=== PATIENT | male | born 1980 | race Caucasian/White ===

== ENCOUNTER 2018-10-07 10:01 | Emergency (ER) | payer MEDICAID ==
[~2018-10-07] VITALS: Ht 188 cm; Wt 109.3 kg
[2018-10-07 10:04] VITALS: BP 146/78
--- NOTE | 2018-10-07 10:13 | NUR ---
BIB . AAO X4 C/O INSOMNIA AND NON RADIATING CHEST TIGHTNESS X 3 DAYS. PT DENIES CHEST PAIN. PT STATES HE HAS HAD A HISTORY OF ANXIETY. PT STATES THAT HE HAS A LOT IN HIS MIND CAUSING HIM TO WORRY AND NOT BEING ABLE TO SLEEP. PT IS NON DIAPHORETIC, PT SPEAKING IN COMPLETE SENTENCES. NO FACIAL ASSYMETRY, DENIES SOB. EQUAL JORGE STRENGTH TO UPPER AND LOWER EXTREMITIES. PT AMBULATED WITH STEADY GAIT. PT PLACED ON FULL [employer]. HOB UP. BED SIDE RAILS UP X1. ON LOW BED POSITION, LOCKED. ER TO EVALUATE PT.
--- NOTE | 2018-10-07 10:40 | NUR ---
RESIDENT DOCTOR AT BEDSIDE FOR PT EVALUATION
[2018-10-07] MEDS ORDERED: LIDOCAINE VISCOUS 2% 20 ML UDC PO ONE (10:50)
[2018-10-07] MEDS ORDERED: DICYCLOMINE HCL LIQUID 10 MG/5 ML UDC PO ONE (10:50)
[2018-10-07] MEDS ORDERED: ALUMINUM HYD/MAG/SIMETHICONE 30 ML UDC PO ONE (10:50)
[2018-10-07] MEDS ORDERED: PANTOPRAZOLE 40 MG TABEC PO ONE (10:55)
--- NOTE | 2018-10-07 12:04 | NUR ---
PT AAO X4, FULL CLEAR SPEECH. PT DENIES ANY CHEST TIGHTNESS. NO SIGNS AND SYMPTOMS OF DISTRESS NOTED.
--- NOTE | 2018-10-07 12:05 | NUR ---
DR AKERS AT BEDSIDE FOR PT RE EVALUATION
[2018-10-07 12:17] VITALS: BP 120/80
--- NOTE | 2018-10-07 12:17 | NUR ---
Patient discharged with v/s stable. Written and verbal after care instructions given and explained. Patient alert, oriented and verbalized understanding of instructions. Ambulatory with steady gait. All questions addressed prior to discharge. ID band removed. Patient advised to follow up with PMD. Rx of PRILOSEC given. Patient educated on indication of medication including possible reaction and side effects. Opportunity to ask questions provided and answered.
== END 2018-10-07 12:17 | disposition home or self-care (01) ==
LOC: MED 10:01
DX: K21.9 Gastro-esophageal reflux disease without esophagitis (principal); R05 Cough
CPT/HCPCS: 93005; 99284